=== PATIENT | male | born 1965 | race Caucasian/White ===

== ENCOUNTER → 2020-04-01 17:24 | Outpatient (CLI) | payer OTHER, SELFPAY ==
[2014-04-16 23:44] VITALS: BMI 27.1
[2020-04-01 18:20] LABS: PSA,Total - Annual Screen 0.62 ng/mL (0.00-4.00)
== END ==
PROVIDERS: PCP Family Medicine; Referring Provider Family Medicine; Visit Provider Family Medicine
DX: R35.1 Nocturia (principal)
CPT/HCPCS: 36415; 84153; G0103

== ENCOUNTER 2020-12-18 07:26 | Outpatient (RCR) | payer OTHER, SELFPAY ==
[2014-04-16 23:44] VITALS: BMI 27.1
== END 2020-12-18 23:59 ==
LOC: IMMUN 07:26
PROVIDERS: PCP Family Medicine; Referring Provider Family Medicine; Visit Provider Family Medicine
DX: Z23 Encounter for immunization (principal)
CPT/HCPCS: 0011A; 0012A

== ENCOUNTER 2023-04-12 11:29 | Emergency (ER) | payer OTHER, SELFPAY ==
[2023-04-12 11:32] VITALS: BP 150/107; PULSE 78; RESP 18; TEMP 36.6; O2SAT 97; BMI 29.1
--- NOTE | 2023-04-12 11:47 | EX.ED.UPPERE ---
HPI History of Present Illness Chief Complaint: Upper Extremity Injury Detail of Chief Complaint: Right thumb injury Informant: patient Narrative Narrative: Patient presents to the emergency department with complaint of an injury to his right thumb that occurred at work. Patient states that he had his right thumb smashed between a cart and a board. Patient is left-hand dominant. Patient up-to-date on tetanus. Patient did sustain laceration. PFSH PFSH Home Medications aspirin 81 mg chewable tablet 81 mg PO DAILY@0800 04/17/14 [History Last Taken 04/16/14] esomeprazole magnesium 20 mg capsule,delayed release (Nexium) 20 mg PO DAILY 04/17/14 [History Last Taken 04/16/14] multivitamin with folic acid 400 mcg tablet (Thera) 1 tab PO DAILY 04/17/14 [History Last Taken 04/16/14] Allergy/AdvReac Type Severity Reaction Status Date / Time meperidine HCl [From Demerol] Allergy Rash Verified 04/12/23 11:55 phenytoin sodium Allergy Rash Verified 04/12/23 11:55 [From Dilantin] phenytoin sodium extended Allergy Rash Verified 04/12/23 11:55 [From Dilantin] promethazine HCl Allergy Rash Verified 04/12/23 11:55 [From Phenergan] Surgical History (Updated 04/12/23 @ 11:54 by Katty Little) History of splenectomy Social History Smoking Status: Current every day smoker tobacco type: pipe ROS ROS ED Review of Systems ROS Unobtainable: other Constitutional Constitutional ED: Reports lethargy; Denies chills, fever(s), sweats or weight loss Eyes Eyes: Denies blurry vision, change in vision or diplopia ENT ENT ED: Denies rhinorrhea or sore throat Cardiovascular Cardiovascular: Denies chest pain, orthopnea or racing heartbeat Respiratory/Chest Respiratory/Chest: Denies cough, dyspnea, dyspnea on exertion, orthopnea or sputum Gastrointestinal Gastrointestinal: Denies abdominal pain, diarrhea, nausea or vomiting Genitourinary Genitourinary ED: Denies dysuria, hematuria or urinary frequency Musculoskeletal Musculoskeletal: Reports other Details: Right thumb injury/laceration ; Denies arthralgias, back pain, myalgias or neck pain Integumentary Denies abscess, Abrasions or rash Neurologic Neurologic: Denies headache(s) or weakness Psychiatric Psychiatric: Denies anxiety, depression or suicidal thoughts Endocrine Endocrinology: Denies polydipsia, polyphagia or polyuria Hematologic/Lymphatic Hematologic/Lymphatic: Denies easy bleeding, easy bruising or lymphadenopathy Allergic/Immunologic Allergic/Immunologic ED: Denies mouth swelling, tongue swelling or urticaria EXAM Physical Exam Const Vital Signs: 04/12/23 11:32 Temperature 98 F Temperature Source Temporal Pulse Rate 78 Respiratory Rate 18 Blood Pressure 150/107 H Blood Pressure Mean 121 Pulse Ox 97 Oxygen Delivery Method Room Air Positive well nourished and well developed General Appearance ED: well developed and NAD HEENT Reports TM's clear and moist mucous membranes normocephalic and atraumatic; Negative for trauma or tenderness Tympanic Membrane ED: Yes TM's clear Eyes PERRL and EOMs intact bilaterally General Eye ED: Negative for pale conjunctiva or scleral icterus Neck no lymphadenopathy, supple and no JVD General: Negative for tenderness Chest Wall inspection of chest normal and palpation of chest normal Chest: Negative for tenderness Resp normal respiratory effort and clear to auscultation bilaterally Effort and Inspection: Negative for respiratory distress or pain with movement Auscultation: Negative for rhonchi, wheezes or diminished lung sounds Cardio regular rate, regular rhythm, S1 normal heart sound, S2 normal heart sound and no murmurs Peripheral Pulses: pulses 2+ throughout GI normal to inspection, nondistended, normoactive bowel sounds, soft to palpation, non-tender, non-distended and no masses Back/Spine no CVA tenderness and no thoracic nor lumbar tenderness Extremity Negative for normal to inspection Extremity Narrative: Right thumb-patient has a 3 cm laceration extending from the edge of the nail across the lateral aspect of the distal phalanx to the volar surface. He does have some diffuse bony tenderness of the distal phalanx. He is neurovascular intact distally. No subungual hematoma noted. General Extremety ED: Negative for edema General Extremity: Negative for edema Neuro oriented x3, CN's II-XII intact bilaterally, no sensory deficits noted and gait normal Sensorium / Orientation: awake, alert, oriented to person, oriented to place and oriented to time Motor Exam: strength 5/5 throughout and strength abnormal Psych mental status grossly normal Skin no rashes or lesions noted and no wounds MDM MDM MDM Narrative Medical decision making narrative: Patient presents with a flap-like laceration of 3 cm over the lateral aspect of the right thumb. Patient did not want any anesthetic. Please see procedure note for suture repair. Patient advised to follow-up in 10 days for suture removal. Patient advised to return if increasing pain, redness, swelling, purulent drainage, or condition should worsen anyway. Patient received a tetanus booster. He did have an x-ray of the right thumb that showed no evidence of fracture. Radiography Diagnostic Testing: Three-view x-rays of right thumb obtained interpreted by myself as no acute fractures or dislocations. Radiology in agreement. Procedures Lacerations Right thumb laceration: Length: 1.18 in Depth: Sub Q Shape: Flap Prep: Sterile Conditions Laceration repair: Irrigated and Skin sutures Irrigated (ml): 50 Number of Sutures/Chelsea: 6 Suture Information: Ethilon and Simple Discharge Plan Triage Chief Complaint: Upper Extremity Injury ED Provider: Natanael Stovall Dx/Rx/DC Orders Clinical Impression: Laceration of right thumb Instructions: ED Laceration, Hand: All Closures Prescriptions: No Action aspirin 81 MG tablet,chewable 81 mg PO DAILY@0800 esomeprazole magnesium [Nexium] 20 MG capsule 20 mg PO DAILY multivitamin with folic acid [Thera] 1 TABLET tablet 1 tab PO DAILY Primary Care Provider: Sherman Saini Referrals: [facility]] - 10 Day for suture removal Sherman Saini MD [Primary Care Provider] - Disposition Disposition: Home, Self Care
--- NOTE | 2023-04-12 11:57 | RAD_ITS ---
STUDY: X-RAY - RIGHT HAND, ATTENTION FIRST FINGER REASON FOR EXAM: Male, 57 years old. injury right thumb TECHNIQUE: 3 view(s) of the finger were obtained. COMPARISON: None. FINDINGS: Normal metacarpal head. Normal metacarpophalangeal joint. Normal proximal phalanx. Normal middle phalanx. Normal distal phalanx. Normal proximal interphalangeal joint. Normal distal interphalangeal joint. RAD/Finger(s) Min 2 Views IMPRESSION: Normal x-ray examination of the finger. Electronically Signed: Bartolome Willson MD at 12:14 EDT ,
[2023-04-12 12:52] VITALS: RESP 16
== END 2023-04-12 12:56 | disposition home or self-care (01) ==
PROVIDERS: Emergency Provider Emergency Medicine; PCP Family Medicine; Referring Provider Emergency Medicine; Visit Provider Emergency Medicine
DX: S61.011A Laceration without foreign body of right thumb without damage to nail, initial encounter (principal); Z90.81 Acquired absence of spleen; F17.290 Nicotine dependence, other tobacco product, uncomplicated; W23.2XXA Caught, crushed, jammed or pinched between a moving and stationary object, initial encounter; Y92.69 Other specified industrial and construction area as the place of occurrence of the external cause; Y99.0 Civilian activity done for income or pay
CPT/HCPCS: 12002; 73140; 99284